=== PATIENT | female | born 1990 | race African-American/Black ===

== ENCOUNTER 2019-04-15 13:29 | Emergency (ER) | payer OTHER ==
[~2019-04-15] VITALS: Ht 162.6 cm; Wt 135.2 kg
[~2019-04-15 13:29] MED LIST: ACETAMINOPHEN-1 EAC1 PO; FLEXERIL PO; IBUPROFEN 600600 M1 PO; NAPROSYN500 MG PO; NOHOMEMEDICATIONS; PRENATAL TABLE1 EAC3 PO; TRINATE TABLET1 TAB PO; ZOFRAN ODT4 MG PO; ZPAK PO
[2019-04-15 13:46] LABS: URINE BILIRUBIN NEGATIVE (Negative); URINE BLOOD NEGATIVE (Negative); URINE CLARITY CLEAR; URINE COLOR YELLOW; URINE GLUCOSE-RANDOM* NEGATIVE (Negative); URINE KETONES NEGATIVE (Negative); URINE LEUKOCYTES-REFLEX NEGATIVE (Negative); URINE NITRITE-REFLEX NEGATIVE (Negative); URINE PROTEIN (DIPSTICK) TRACE (Negative); URINE SPECIFIC GRAVITY >= 1.030 (1.005-1.035); URINE UROBILINOGEN 0.2 E.U./dl (0.2-1.0)
[2019-04-15 14:03] LABS: ABSOLUTE NEUTROPHILS 5.1 thou/uL (1.4-8.2); EOSINOPHILS 0.6 % (0.0-3.0); HEMOGLOBIN 13.9 gm/dL (12.0-15.0); LYMPHOCYTES 21.3 % (24.0-44.0); MCH 27.8 pg (26.0-34.0); MCHC 32.2 g/dL (28.0-37.0); MCV 86.3 fL (80.0-100.0); MONOCYTES 6.8 % (1.0-8.0); PLATELET COUNT 275 thou/uL (150-400); POLYS 70.3 % (36.0-66.0); RBC 4.98 mil/uL (4.20-5.00); RDW 15.2 % (10.5-14.5); WBC 7.3 thou/uL (4.0-11.0)
[2019-04-15 14:13] LABS: CALCIUM 9.6 mg/dL (8.5-10.1); CREATININE 0.8 mg/dL (0.6-1.0); POTASSIUM 3.5 mmol/L (3.5-5.1)
[2019-04-15 14:20] LABS: ALBUMIN 3.7 g/dL (3.4-5.0); TOTAL BILIRUBIN 0.7 mg/dL (<0.1-1.0); TOTAL PROTEIN 8.5 g/dL (6.4-8.2)
[2019-04-15] MEDS ORDERED: ATIVAN0.5 MG PO (14:31)
[2019-04-15 14:32] VITALS: BP 130/77
--- NOTE | 2019-04-16 14:20 | EKG ---
[place] [address] [facility] [place] [address] ELECTROCARDIOGRAM REPORT Name: KAREEM GLEZ Room #: DEP [facility]#: [id number] ������������������ Admission: 04/15/19 ������������������ Attend Phys: Discharge: 04/15/19 ������������������ Date of : 86 Report #: [id number] ����������������������������������������������������������������� [id number] THIS REPORT FOR: //name// [facility] ED Test Date: 2019-04-15 Test Time: 13:31:48 Pat Name: KAREEM GLEZ Department: Room: Gender: F [employer]: : 1990 Requested By: Alisa Matos Order Number: [id number] MD: Danielito Chapin Measurements Intervals [place] Rate: 98 P: 34 PA: 158 QRS: 8 QRSD: 78 T: 2 QT: 342 QTc: 437 Interpretive Statements Sinus rhythm Poor R wave progression Compared to ECG 04/22/2015 15:19:59 No significant changes Electronically Signed On 04-16-2019 14:20:24 CDT by Danielito Chapin [email or web address] ��������������������������������������������� <ELECTRONICALLY SIGNED> ���������������������������������������� By: Danielito Chapin MD, [facility] ��������������������������������������������� 04/16/19 1420 1331 133 Danielito Chapin MD, FACC /EPI
== END 2019-04-15 14:33 | disposition home or self-care (01) ==
LOC: ER 13:29
PROVIDERS: Physician Assistant
DX: R00.2 Palpitations (principal); F43.9 Reaction to severe stress, unspecified; F17.210 Nicotine dependence, cigarettes, uncomplicated; Z90.49 Acquired absence of other specified parts of digestive tract; Z88.6 Allergy status to analgesic agent